=== PATIENT | male | born 1980 | race Caucasian/White ===

== ENCOUNTER 2022-03-10 20:29 | Emergency (ER) | payer OTHER, SELFPAY ==
--- NOTE | 2022-03-10 20:44 | DI.RAD.S_ITS ---
PROCEDURE: XR TIBIA FUBULA RT 2V INDICATIONS: deep laceration due to metallic foreign body TECHNIQUE: 2 views of the tibia and fibula were acquired. COMPARISON: None. FINDINGS: Bones: No fractures or dislocations. No suspicious bony lesions. Soft tissues: No radiopaque metallic foreign body identified. IMPRESSION: 1. No fractures or metallic foreign bodies. Dictated by: Cole Valentino M.D. on 03/10/2022 at 21:23 Approved by: Cole Valentino M.D. on 03/10/2022 at 21:23
[2022-03-10 20:45] VITALS: BP 145/81; PULSE 66; RESP 20; TEMP 36.9; O2SAT 98
--- NOTE | 2022-03-10 20:47 | ED.LOWEXIN ---
HPI - Extremity Injury (Lower) General Chief Complaint: Wound/Laceration Stated Complaint: rt del toro cut, Covid + Time Seen by Provider: 03/10/22 20:38 Source: patient Mode of arrival: Ambulatory History of Present Illness HPI Narrative: 42-year-old male nonsmoker with known COVID presents with an accidental injury to his right anterior del toro. He was mowing the lawn and states that he kicked up a piece of metal which struck him in his del toro. He states he is unsure when his last tetanus shot was given. He has some localized pain but is otherwise well and free of complaint. He is able to ambulate without any difficulty. It bled a bit initially and he cleaned it and put a dressing on prior to arrival. Related Data Previous Rx's Medication Instructions Recorded cephalexin 500 mg capsule 500 mg PO Q6H 7 days #28 caps 03/10/22 Review of Systems Review of Systems Narrative: GENERAL: Denies chills, fatigue, malaise, fever, sweats. HEENT: Denies sinus pain, ear pain, sore throat, difficulty swallowing, dizziness. RESPIRATORY: Denies dyspnea, cough, wheezing, hemoptysis, sputum. CARDIOVASCULAR: Denies chest pain, palpitations, orthopnea, edema, GASTROINTESTINAL: Denies nausea, vomiting, abdominal pain, diarrhea, constipation, melena. : Denies dysuria, frequency, incontinence, hematuria, urinary retention. MUSCULOSKELETAL: denies weakness, joint pain, or bony pain SKIN: See HPI NEUROLOGIC: Denies weakness, headache, numbness, change in speech, confusion, seizures, incoordination. PSYCHIATRIC: No concerning psychosocial issues. 12 point review of systems is negative except for those stated above Exam Narrative Exam Narrative: GEN: AOx3 and in mild distress EYES: Pupils are equal, round, and reactive to light and accommodation. Extraoccular muscles are intact bilaterally. There is no subconjunctival hemorrhage or exudate. CHEST: Lungs are clear to auscultation bilaterally and free of wheezes, rales, or rhonchi. Heart rate is regular rhythm, there are no murmurs, clicks, rubs, or gallops. There is no chest wall tenderness. ABD: Abdomen is soft and nontender. There is no guarding or rebound. Bowel sounds are normal in all 4 quadrants. There is no mass or organomegaly. EXT: 1 cm laceration in the midline of the distal anterior right del toro, 1 small piece of organic debris, grass or what is removed, no other stones or dirt noted. No active bleeding Full painless ROM of all extremities with no loss of sensation or strength. SKIN: Warm, pink, and dry. No erythema or rash Initial Vital Signs Initial Vital Signs: Vital Signs Temperature 98.5 F 03/10/22 20:45 Pulse Rate 66 03/10/22 20:45 Respiratory Rate 20 03/10/22 20:45 Blood Pressure 145/81 H 03/10/22 20:45 Pulse Oximetry 98 03/10/22 20:45 Oxygen Delivery Method 03/10/22 20:45 Procedures Laceration Repair Laceration 1: Site: lower extremity Side (If applicable): right Size (cm): 1.0 Description: irregular and contaminated Depth: simple, single layer Local Anesthetic: lidocaine 1% Amount of anesthesia used (mL): 3 Pre-repair: wound explored, irrigated extensively and cleansed with chlorhexadine Skin layer closed with: nylon Skin layer suture size: 4-0 Number of sutures: 3 Technique: simple, interrupted Course Orders Ordered: ED Orders 03/10/22 20:44 XR tibia fibula RT 2V Stat Discontinued Medications Diphtheria/Tetanus/Acell Pertussis (Tet,Diph,Pertuss(Acell),Vac/Pf 0.5 Ml Syringe) 0.5 ml IM .ONCE ONE Stop: 03/10/22 20:45 Last Admin: 03/10/22 21:02 Dose: 0.5 ml Documented By: DELIO Lidocaine/Epinephrine (Lidocaine 1% W/Epi) 1 ml SUBCUT NOW ONE Stop: 03/10/22 20:45 Last Admin: 03/10/22 21:02 Dose: 1 ml Documented By: DELIO Vital Signs Vital signs: Vital Signs - 8 hr 03/10/22 20:45 03/10/22 21:38 Temperature 98.5 F Pulse Rate 66 69 Respiratory Rate 20 20 Blood Pressure 145/81 H 130/76 Pulse Oximetry 98 100 Oxygen Delivery Method Room Air Room Air MDM - Extremity Injury (Lower) Imaging Data Extremity x-ray #1: Radiologist's Impression: [address] [address] XRay Report Signed Patient: Yovany Bear MR#: [id number] : 1980 Acct:[id number] Age/Sex: 42 / M Date of Service: 03/10/22 Loc: ED Accession Number: [id number] ?? Procedure: XR tibia fibula RT 2V Ordering Provider: Brad Riggins D.O. PROCEDURE:? XR TIBIA FUBULA RT 2V ? INDICATIONS:? deep laceration due to metallic foreign body ? TECHNIQUE:? 2 views of the tibia and fibula were acquired.? ? COMPARISON:? None. ? FINDINGS:? ? Bones:? No fractures or dislocations.? No suspicious bony lesions.? ? Soft tissues:? No radiopaque metallic foreign body identified. ? IMPRESSION:? ? 1. No fractures or metallic foreign bodies.? ? ? Dictated by: Cole Valentino M.D. on 03/10/2022 at 21:23 ? ? Approved by: Cole Valentino M.D. on 03/10/2022 at 21:23 ? Discharge Plan Departure Patient Disposition: Home Clinical Impression: Laceration Instructions: DI for Laceration Repair Activity Restrictions/Additional Instructions: *You have been diagnosed with [right del toro laceration with no obvious underlying fracture or metallic foreign body *What to do: *Please continue to take your regular medications as directed. [ x] New medication prescriptions sent to your pharmacy: [Keflex ] [ ] New medication written as a paper prescription [ ] No new medications given * Please keep the wound clean and dry to the best of your ability. Please monitor for signs of infection such as redness to the skin or increasing pain. Have the sutures/arminda removed by your doctor in about 7 days. If you are unable to get into your doctor, we would be happy to remove the sutures/arminda in that same timeframe. *If you do not have a primary care provider please contact the [facility] Resource line at [phone]. They will ask some questions about your medical history and help get you set up with a doctor in the community. *Return to Emergency Department if you should have any new, worsening or concerning symptoms, such as [fever greater than 101 F, shaking chills, worsening pain, persistent vomiting or other bothersome symptoms] Prescriptions: New cephalexin 500 mg capsule 500 mg PO Q6H 7 Days Qty: 28 0RF Visit Report Forms: Patient Portal/API
[2022-03-10] MEDS: TET,DIPH,PERTUSS(ACELL),VAC/PF 0.5 ML SYRINGE IM (21:02)
[2022-03-10] MEDS: LIDOCAINE 1% W/EPI 1 ML SUBCUT (21:02)
[2022-03-10 21:38] VITALS: BP 130/76; PULSE 69; RESP 20; O2SAT 100
== END 2022-03-10 21:40 | disposition home or self-care (01) ==
PROVIDERS: Emergency Provider Emergency Medicine
DX: S81.811A Laceration without foreign body, right lower leg, initial encounter (principal); W22.8XXA Striking against or struck by other objects, initial encounter; Z23 Encounter for immunization; U07.1 COVID-19
CPT/HCPCS: 12001; 73590; 90471; 99283; 90715